=== PATIENT | male | born 1945 ===

== ENCOUNTER 2016-10-31 08:16 | Day surgery (SDC) | payer MEDICARE, OTHER ==
[2016-10-04 12:01] VITALS: BMI 22.3
[2016-10-31] MEDS ORDERED: Lactated Ringer's 1,000 ML IV ONE (08:24)
[2016-10-31 08:49] VITALS: O2SAT 100
[2016-10-31] MEDS ORDERED: Lidocaine 2% w Epi 1:100,000 Inj IJ ONE ×2 (09:11→09:17)
--- NOTE | 2016-10-31 09:57 | PCM.SURG1 ---
Surgeon's Initial Post Op Note - Surgeon's Notes Surgeon: Audra Manager Social Responsibility: Florina PGY@ Type of Anesthesia: Local Pre-Operative Diagnosis: Left inguinal lymphadenopathy Operative Findings: enlarged L inguinal lymph nodes Post-Operative Diagnosis: same Operation Performed: Biopsy of Left inguinal lymph node Specimen/Specimens Removed: lymph node Estimated Blood Loss: EBL {In ML}: 10 Blood Products Given: N/A Drains Used: No Drains Post-Op Condition: Good Date of Surgery/Procedure: 10/31/16 Time of Surgery/Procedure: 09:57
[2016-10-31] MEDS ORDERED: Oxycodone/Acetaminophen 5/325 mg Tab PO PRN (09:58)
--- NOTE | 2016-10-31 10:07 | OP ---
PROCEDURE DATE: 10/31/2016 PREOPERATIVE DIAGNOSES: Lymphadenopathy, human immunodeficiency virus man. PROCEDURE CARRIED OUT: Left femoral node biopsy. SURGEON: Suresh Zhu Jr., MD LAST MODEL DEPARTMENT SUPERVISOR: ANESTHESIOLOGIST: Myself. ANESTHESIA: 1% Xylocaine. The patient is a 70-year-old man with lymphadenopathy in the left groin and right groin. OPERATIVE FINDINGS: The specimen was submitted in the fresh state for examination. This was reviewe d with the pathologist after I reviewed with him the things that needed to be studied, particularly m ycobacterium culture as well as histology. PROCEDURE: The patient was given local anesthesia. The area was marked. Both the patient and mysel f agreed this is the area to be biopsied. This was then excised by sharp and blunt dissection. The connections to the surrounding tissues were suture ligated with silk sutures and then the skin was cl osed with a subcuticular closure. Blood loss for the procedure was less than 10 mL. OPERATION CARRIED OUT: Left femoral node biopsy. Suresh Zhu Jr., MD cc:Deng Zamora MD 56 TT: 10/31/2016 10:06:54 en
[2016-10-31 10:10] VITALS: BP 122/67; PULSE 65; RESP 17; TEMP 97.1
== END 2016-10-31 10:32 | disposition home or self-care (01) ==
LOC: C.SDS 08:16
PROVIDERS: ATTEND Surgery Vascular Surgery
DX: R59.1 Generalized enlarged lymph nodes (principal); Z21 Asymptomatic human immunodeficiency virus [HIV] infection status

== ENCOUNTER 2017-12-07 11:17 | Emergency (ER) | payer MEDICARE, OTHER ==
[2017-12-07 11:18] VITALS: BMI 22.3
[2017-12-07 13:33] LABS: BASO % 0.6 % (0.0-2.0); EOS # 0.5 K/uL (0.0-0.7); EOS % 6.9 % (0.0-4.0); HEMOGLOBIN 14.6 g/dL (12.0-18.0); LYMPH # 1.8 K/uL (1.0-4.3); LYMPH % 24.4 % (20.0-40.0); MEAN CELL VOLUME 90.4 fL (80.0-94.0); MEAN CORPUSCULAR HGB CONC 34.2 g/dL (33.0-37.0); MEAN PLATELET VOLUME 6.5 fL (7.2-11.7); MONO # 0.8 K/uL (0.0-0.8); MONO % 10.9 % (0.0-10.0); NEUT # 4.1 K/uL (1.8-7.0); NEUT % 57.2 % (50.0-75.0); RBC 4.72 Mil/uL (4.40-5.90); RED CELL DISTRIBUTION WIDTH 14.9 % (11.5-14.5); WHITE BLOOD COUNT 7.2 K/uL (4.8-10.8)
[2017-12-07 13:40] LABS: INR 1.2; PROTHROMBIN TIME 13.3 SECONDS (9.7-12.2)
[2017-12-07 13:51] LABS: ALB/GLOB RATIO 0.9 (1.0-2.1); ALBUMIN 3.8 g/dL (3.5-5.0); ALT/SGPT 16 U/L (21-72); AST/SGOT 25 U/L (17-59); BLOOD UREA NITROGEN 18 mg/dL (9-20); CALCIUM 9.5 mg/dl (8.6-10.4); GFR AFRICAN-AMERICAN > 60; GFR NON-AFRICAN AMERICAN 55
[2017-12-07 13:59] LABS: B-TYPE NATRIURETIC PEPTIDE 38.7 pg/mL (0-900)
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
[2017-12-07] MEDS ORDERED: Iodixanol 320 MG/ML 100 ML BOTTLE IV ONE (14:17)
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
[2017-12-07 16:15] VITALS: BP 161/73; PULSE 66; RESP 18; TEMP 97.7; O2SAT 99
--- NOTE | 2017-12-09 11:53 | CARD ---
APPROVED REPORT EKG Measurement Heart [id number] <Conclusion> Normal sinus rhythm Nonspecific T wave abnormality Abnormal ECG
== END 2017-12-07 16:15 | disposition home or self-care (01) ==
LOC: C.ER 11:17
DX: S29.012A Strain of muscle and tendon of back wall of thorax, initial encounter (principal); V89.2XXA Person injured in unspecified motor-vehicle accident, traffic, initial encounter
CPT/HCPCS: 71275; 80053; 83880; 84484; 85025; 85610; 85730; 93005; 96374; 99285; J1885; Q9967